=== PATIENT | male | born 1960 | race Caucasian/White ===

== ENCOUNTER 2021-01-22 17:58 | Emergency (ER) | payer BC ==
[~2021-01-22] VITALS: Ht 172.7 cm; Wt 81.6 kg
--- NOTE | 2021-01-22 18:17 | NUR ---
PT STATES HE TAKES "BLOOD PRESSURE" PILLS AND "CHOLESTEROL PILLS", BUT CAN NOT REMEMBER THE NAMES OF MEDICATION.
--- NOTE | 2021-01-22 18:35 | NUR ---
at bedside for assessment
[2021-01-22] MEDS ORDERED: KETOROLAC TROMETHAMINE 15 MG INJ IVP ONE (18:45)
[2021-01-22] MEDS ORDERED: ONDANSETRON 4 MG/2 ML VIAL IV ONE (18:45)
[2021-01-22] MEDS ORDERED: IV D5LR 1,000 ML IV ONE (18:45)
[2021-01-22] MEDS ORDERED: KETOROLAC TROMETHAMINE 15 MG INJ ONE (18:52)
[2021-01-22] MEDS ORDERED: ONDANSETRON 4 MG/2 ML VIAL ONE (18:53)
[2021-01-22 19:09] LABS: BASOPHILS % (AUTO) 0.2 % (0.0-2.0); EOSINOPHILS % (AUTO) 0.2 % (0.0-7.0); HEMATOCRIT 37.4 % (36.7-47.1); HEMOGLOBIN 12.8 g/dL (12.5-16.3); LYMPHOCYTES # (AUTO) 1.3 K/uL (20.0-40.0); LYMPHOCYTES % (AUTO) 16.9 % (20.5-51.5); MEAN CORPUSCULAR HEMOGLOBIN 31.4 uug (23.8-33.4); MEAN CORPUSCULAR HGB CONC 34 g/dL (32.5-36.3); MEAN CORPUSCULAR VOLUME 91.5 fL (73.0-96.2); MONOCYTES # (AUTO) 0.9 K/uL (2.0-10.0); MONOCYTES % (AUTO) 12.5 % (0.0-11.0); NEUTROPHILS # (AUTO) 5.2 K/uL (1.8-8.9); NEUTROPHILS % (AUTO) 70.2 % (38.5-71.5); PLATELET COUNT (AUTO) 369 K/uL (152-348); RED BLOOD CELL COUNT(AUTO) 4.09 MIL/uL (4.06-5.63); WHITE BLOOD COUNT (AUTO) 7.4 K/uL (3.6-10.2)
[2021-01-22 19:13] LABS: POTASSIUM 3.1 mmol/L (3.5-5.1)
[2021-01-22] MEDS ORDERED: DIPHENOXYLATE HCL/ATROP SULF TABLET PO ONE (19:15)
[2021-01-22 19:19] LABS: BILIRUBIN,DIRECT 0.1 mg/dL (0.0-0.2); BILIRUBIN,TOTAL 0.5 mg/dL (0.2-1.0); TOTAL PROTEIN, SERUM 6.8 g/dL (6.4-8.2)
[2021-01-22] MEDS ORDERED: DIPH1TAB PO (19:22)
[2021-01-22] MEDS ORDERED: ONDA4TAB5 PO (19:22)
[2021-01-22] MEDS ORDERED: DICY20TA11 PO (19:22)
[2021-01-22] MEDS ORDERED: DIPHENOXYLATE HCL/ATROP SULF TABLET ONE (19:24)
--- NOTE | 2021-01-22 19:30 | NUR ---
IV [id number] done infusing. no adverse reactions noted.
--- NOTE | 2021-01-22 19:55 | NUR ---
IV removed. Catheter intact and site benign. Pressure and 4x4 gauze applied to site. No bleeding noted. Patient discharged to home in stable condition. Written and verbal after care instructions given. Patient verbalizes understanding of instructions. Stressed follow up or return to ER for worsening s/s. Patient ambulating with steady gait. NAD noted
[2021-01-22] MEDS ORDERED: POTASSIUM CHLORIDE 20 MEQ TAB.PRT.SR ONE (19:56)
[2021-01-22] MEDS ORDERED: POTASSIUM CHLORIDE 20 MEQ TAB.PRT.SR PO ONE (20:00)
[2021-01-22 20:03] VITALS: BP 122/73
== END 2021-01-22 19:55 | disposition home or self-care (01) ==
LOC: ER 18:01
DX: R19.7 Diarrhea, unspecified (principal); E87.6 Hypokalemia; R50.9 Fever, unspecified
CPT/HCPCS: 36415; 80048; 80076; 83690; 85025; 96374; 96375; 99284; J1885; J2405; J3490; A4663